=== PATIENT | female | born 1975 | race Caucasian/White ===

== ENCOUNTER 2021-01-29 11:05 | Inpatient (IN) | payer MEDICAID ==
[~2021-01-29] VITALS: Ht 157.5 cm; Wt 81.6 kg
[2021-01-29] MEDS ORDERED: WELBUTRIN (11:30)
[2021-01-29] MEDS ORDERED: ABILIFY (11:30)
[2021-01-29] MEDS ORDERED: GEODON (11:30)
[2021-01-29] MEDS ORDERED: FAMOTIDINE 20MG/2ML VIAL IV STA (11:57)
[2021-01-29] MEDS ORDERED: KETOROLAC 30MG/ML VIAL IV STA (11:57)
[2021-01-29] MEDS ORDERED: SODIUM CHLORIDE 0.9% 1,000 ML IV ONE (12:00)
[2021-01-29] MEDS ORDERED: ONDANSETRON HCL 4MG/2ML INJ IV ONE (12:15)
[2021-01-29 12:19] LABS: BASOPHILS % 0.4 % (0.0-2.0); HEMATOCRIT. 33.7 % (36.0-48.0); HEMOGLOBIN. 10.3 g/dL (12.0-16.0); LYMPHOCYTES % 13.1 % (20.0-50.0); MEAN CORPUSCULAR HEMOGLOBIN 22.1 pg (28.0-32.0); MEAN PLATELET VOLUME 7.4 fl (7.4-10.4); MONOCYTES % 5.2 % (2.0-8.0); NEUTROPHILS % 81.3 % (40.0-76.0); PLATELET 408 x1000/uL (130-400); RED BLOOD CELL COUNT 4.68 mill/uL (4.2-5.4); RED CELL DISTRIBUTION WIDTH 19.3 % (11.6-14.6)
[2021-01-29 12:25] LABS: CHLORIDE 107 mEq/L (98-107)
[2021-01-29 12:28] LABS: ETHANOL BLOOD < 10 mg/dL
[2021-01-29 12:32] LABS: HCG SCREEN NEGATIVE
[2021-01-29 14:47] LABS: CLARITY URINE CLOUDY (CLEAR); COLOR URINE DK YELLOW (YELLOW); KETONES URINE 3+ (NEGATIVE); LEUKOCYTE ESTERASE URINE 1+ (NEGATIVE); NITRITE URINE NEGATIVE (NEGATIVE); OCCULT BLOOD URINE NEGATIVE (NEGATIVE); PH URINE 8.5 (4.5-8.0); PROTEIN URINE 1+ (NEGATIVE); SPECIFIC GRAVITY URINE 1.021 (1.005-1.030)
[2021-01-29] MEDS ORDERED: MORPHINE SULFATE 4 MG/ML CPJ (NOT FOR IM USE) IV STA (14:53)
[2021-01-29] MEDS ORDERED: ONDANSETRON HCL 4MG/2ML INJ IV STA (14:53)
[2021-01-29] MEDS ORDERED: CEFTRIAXONE 1 G PREMIX 50 ML IV ONE (15:15)
[2021-01-29] MEDS ORDERED: ONDANSETRON HCL 4MG/2ML INJ IV PRN (15:30)
[2021-01-29] MEDS ORDERED: LORAZEPAM 2MG/ML CPJ IV PRN (15:30)
[2021-01-29] MEDS ORDERED: MORPHINE SULFATE 2 MG/ML CPJ (NOT FOR IM USE) IV PRN (15:30)
[2021-01-29] MEDS ORDERED: ACETAMINOPHEN 650MG SUPP PR PRN ×2 (15:30)
[2021-01-29] MEDS ORDERED: IPRATROPIUM/ALBUTEROL 0.5-3(2.5)MG/3ML NEB NEB PRN (15:30)
[2021-01-29] MEDS ORDERED: NITROGLYCERIN 0.4MG TABLET SL SL PRN (15:30)
[2021-01-29] MEDS ORDERED: ENOXAPARIN 40MG/0.4ML SYR SUBCUT SCH (15:30)
[2021-01-29 15:35] LABS: *BARBITURATES SCREEN URINE NEGATIVE (NEGATIVE); OPIATES URINE SCREEN NEGATIVE (NEGATIVE); PHENCYCLIDINE URINE SCREEN NEGATIVE (NEGATIVE)
[2021-01-29 15:37] LABS: METHADONE URINE SCREEN NEGATIVE (NEGATIVE)
[2021-01-29 15:39] LABS: *AMPHETAMINES SCREEN URINE PRESUMTIVE POSITIVE (NEGATIVE); *BENZODIAZEPINES SCREEN URINE PRESUMTIVE POSITIVE (NEGATIVE); *COCAINE SCREEN URINE PRESUMTIVE POSITIVE (NEGATIVE); CANNABINOID URINE SCREEN PRESUMTIVE POSITIVE (NEGATIVE)
[2021-01-29] MEDS ORDERED: NALOXONE HCL 0.4MG/ML VIAL IV PRN (15:45)
[2021-01-29 16:06] LABS: T4 FREE 1.21 ng/dL (0.76-1.46)
[2021-01-29 16:23] LABS: FERRITIN 8 ng/mL (10-291)
[2021-01-29 16:34] LABS: VITAMIN B12 SERUM 337 pg/mL (211-911)
[2021-01-29 16:46] LABS: FOLIC ACID (FOLATE) SERUM > 20.00 ng/mL (>5.38)
[2021-01-29] MEDS: DEXT 5%/LACTATED RINGERS 1,000 ML IV SCH (17:35)
[2021-01-29] MEDS: ENOXAPARIN 30MG/0.3ML SYR SUBCUT SCH (22:02)
[2021-01-29] MEDS ORDERED: KETOROLAC 15MG/ML VIAL IV PRN (22:30)
[2021-01-30 00:30] VITALS: BP 140/71
[2021-01-30 06:33] LABS: CHLORIDE 107 mEq/L (98-107)
[2021-01-30] MEDS: ENOXAPARIN 30MG/0.3ML SYR SUBCUT SCH (06:51)
[2021-01-30 06:52] LABS: PHOSPHORUS 2.8 mg/dL (2.5-4.9)
[2021-01-30] MEDS: DEXT 5%/LACTATED RINGERS 1,000 ML IV SCH (06:52)
[2021-01-30 06:59] LABS: BASOPHILS % 0.5 % (0.0-2.0); EOSINOPHILS % 1.1 % (0.0-5.0); HEMATOCRIT. 34.2 % (36.0-48.0); HEMOGLOBIN. 10.4 g/dL (12.0-16.0); LYMPHOCYTES % 25.7 % (20.0-50.0); MEAN CORPUSCULAR HEMOGLOBIN 22.4 pg (28.0-32.0); MEAN CORPUSCULAR VOLUME 73.5 fL (81.0-99.0); MEAN PLATELET VOLUME 8.3 fl (7.4-10.4); MONOCYTES % 8.8 % (2.0-8.0); NEUTROPHILS % 63.9 % (40.0-76.0); PLATELET 335 x1000/uL (130-400); RED BLOOD CELL COUNT 4.65 mill/uL (4.2-5.4); RED CELL DISTRIBUTION WIDTH 19.4 % (11.6-14.6)
[2021-01-30 08:00] VITALS: BP 117/50
[2021-01-30] MEDS ORDERED: PANTOPRAZOLE SODIUM 40 MG/VIAL IV SCH (09:00)
[2021-01-30] MEDS ORDERED: POTASSIUM CHLORIDE 20MEQ TABLET SR PO NR (11:15)
== END 2021-01-30 12:18 | disposition left against medical advice (07) | DRG 254 ==
LOC: ER 11:05 → MICUSO 21:16 → 6EST 23:02
PROVIDERS: ADMIT Internal Medicine; ATTEND Internal Medicine
DX: K43.9 Ventral hernia without obstruction or gangrene (principal); D63.8 Anemia in other chronic diseases classified elsewhere; E66.9 Obesity, unspecified; E87.6 Hypokalemia; F15.90 Other stimulant use, unspecified, uncomplicated; Z53.21 Procedure and treatment not carried out due to patient leaving prior to being seen by health care provider; F17.210 Nicotine dependence, cigarettes, uncomplicated; Z68.32 Body mass index [BMI] 32.0-32.9, adult; Z79.899 Other long term (current) drug therapy
CPT/HCPCS: 36415; 71045; 74176; 80053; 80305; 80320; 81003; 82607; 82728; 82746; 83540; 83550; 83735; 84100; 84439; 84443; 84703; 85025; 93005; 99285; C9113; J0696; J1650; J1885; J2270; J2405; J3490; J7030; G0480

== ENCOUNTER 2021-07-12 00:35 | Emergency (ER) | payer MEDICAID ==
[~2021-07-12] VITALS: Ht 165.1 cm; Wt 77.0 kg
[~2021-07-12 00:35] MED LIST: ABILIFY; GEODON; WELBUTRIN
[2021-07-12] MEDS ORDERED: SODIUM CHLORIDE 0.9% 1,000 ML IV ONE (01:45)
[2021-07-12 02:31] LABS: BASOPHILS % 0.3 % (0.0-2.0); EOSINOPHILS % 0.1 % (0.0-5.0); HEMATOCRIT. 28.5 % (36.0-48.0); HEMOGLOBIN. 9.2 g/dL (12.0-16.0); LYMPHOCYTES % 12.9 % (20.0-50.0); MEAN CORPUSCULAR HEMOGLOBIN 22.2 pg (28.0-32.0); MEAN CORPUSCULAR VOLUME 68.9 fL (81.0-99.0); MEAN PLATELET VOLUME 7.5 fl (7.4-10.4); MONOCYTES % 6.6 % (2.0-8.0); NEUTROPHILS % 80.1 % (40.0-76.0); PLATELET 654 x1000/uL (130-400); RED BLOOD CELL COUNT 4.14 mill/uL (4.2-5.4); RED CELL DISTRIBUTION WIDTH 16.8 % (11.6-14.6)
[2021-07-12 02:31] LABS: CLARITY URINE TURBID (CLEAR); COLOR URINE DARK YELLOW (YELLOW); KETONES URINE TRACE (NEGATIVE); LEUKOCYTE ESTERASE URINE 3+ (NEGATIVE); NITRITE URINE POSITIVE (NEGATIVE); OCCULT BLOOD URINE 2+ (NEGATIVE); PROTEIN URINE 2+ (NEGATIVE); SPECIFIC GRAVITY URINE 1.015 (1.005-1.030)
[2021-07-12 02:37] LABS: PLATELET ESTIMATE SLIGHTLY INCREASED
[2021-07-12 02:40] LABS: CHLORIDE 100 mEq/L (98-107)
[2021-07-12 02:45] LABS: ETHANOL BLOOD < 10 mg/dL
[2021-07-12 02:50] LABS: *BARBITURATES SCREEN URINE NEGATIVE (NEGATIVE); *BENZODIAZEPINES SCREEN URINE NEGATIVE (NEGATIVE); METHADONE URINE SCREEN NEGATIVE (NEGATIVE)
[2021-07-12 02:52] LABS: OPIATES URINE SCREEN NEGATIVE (NEGATIVE); PHENCYCLIDINE URINE SCREEN NEGATIVE (NEGATIVE)
[2021-07-12 02:53] LABS: *AMPHETAMINES SCREEN URINE PRESUMTIVE POSITIVE (NEGATIVE); *COCAINE SCREEN URINE PRESUMTIVE POSITIVE (NEGATIVE); CANNABINOID URINE SCREEN PRESUMTIVE POSITIVE (NEGATIVE)
[2021-07-12] MEDS ORDERED: CEFTRIAXONE 1 G PREMIX 50 ML IV ONE (03:00)
[2021-07-12] MEDS ORDERED: PREDNISONE 20MG TABLET PO ONE (03:00)
[2021-07-12] MEDS ORDERED: CEPH500T MT (05:07)
[2021-07-12] MEDS ORDERED: P20 MT (05:07)
[2021-07-12 06:12] VITALS: BP 115/66
== END 2021-07-12 06:14 | disposition home or self-care (01) ==
LOC: ER 00:35
DX: T78.40XA Allergy, unspecified, initial encounter (principal); F15.10 Other stimulant abuse, uncomplicated; N39.0 Urinary tract infection, site not specified; D64.9 Anemia, unspecified; F17.210 Nicotine dependence, cigarettes, uncomplicated; F14.10 Cocaine abuse, uncomplicated; X58.XXXA Exposure to other specified factors, initial encounter
CPT/HCPCS: 36415; 80053; 80305; 80320; 81003; 83605; 85025; 85651; 87077; 87086; 87186; 93005; 96374; 99284; J0696; J7030; J7512; Z7610; G0480

== ENCOUNTER 2023-05-09 02:40 | Emergency (ER) | payer MEDICAID ==
[~2023-05-09] VITALS: Ht 160 cm; Wt 59.0 kg
[~2023-05-09 02:40] MED LIST changes: +CEPH500T MT; +P20 MT
[2023-05-09 02:49] VITALS: O2SAT 100
[2023-05-09 03:24] LABS: BASOPHILS % 1.3 % (0.0-2.0); DIFFERENTIAL COMMENT 0; EOSINOPHILS % 1.4 % (0.0-5.0); HEMATOCRIT. 29.5 % (36.0-48.0); HEMOGLOBIN. 9.2 g/dL (12.0-16.0); LYMPHOCYTES % 30.5 % (20.0-50.0); MEAN CORPUSCULAR HEMOGLOBIN 22.5 pg (28.0-32.0); MEAN CORPUSCULAR HGB CONC 31.1 g/dL (31.0-37.0); MEAN CORPUSCULAR VOLUME 72.6 fL (81.0-99.0); MEAN PLATELET VOLUME 7.1 fl (7.4-10.4); NEUTROPHILS % 55.8 % (40.0-76.0); PLATELET 445 x1000/uL (130-400); RED BLOOD CELL COUNT 4.06 mill/uL (4.2-5.4); RED CELL DISTRIBUTION WIDTH 20.5 % (11.6-14.6); WHITE BLOOD COUNT 4.8 x1000/uL (4.5-11.0)
[2023-05-09 03:41] LABS: ALANINE AMINOTRANSFERASE 25 IU/L (10-49); ASPARTATE AMINOTRANSFERASE 28 IU/L (<34); BILIRUBIN TOTAL 0.6 mg/dL (0.1-1.0); CALCIUM 8.8 mg/dL (8.7-10.4); CARBON DIOXIDE 27 mEq/L (21-32); CHLORIDE 106 mEq/L (98-107); CREATININE 0.8 mg/dL (0.6-1.0); GLUCOSE 100 mg/dL (70-105); POTASSIUM 3.3 mEq/L (3.5-5.1); PROTEIN TOTAL 6.4 g/dL (6.0-8.3); SODIUM 142 mEq/L (136-145); UREA NITROGEN BLOOD 14 mg/dL (9-23)
[2023-05-09] MEDS ORDERED: ONDANSETRON 4MG ODT PO ONE (05:45)
[2023-05-09] MEDS ORDERED: KETOROLAC 15MG/ML VIAL IM ONE (05:45)
[2023-05-09 06:29] LABS: CLARITY URINE CLOUDY (CLEAR); COLOR URINE YELLOW (YELLOW); SPECIFIC GRAVITY URINE 1.025 (1.005-1.030)
[2023-05-09 06:30] LABS: GLUCOSE URINE NEGATIVE (NEGATIVE); KETONES URINE TRACE (NEGATIVE); NITRITE URINE NEGATIVE (NEGATIVE); OCCULT BLOOD URINE 3+ (NEGATIVE); PROTEIN URINE TRACE (NEGATIVE)
[2023-05-09 06:31] LABS: LEUKOCYTE ESTERASE URINE NEGATIVE (NEGATIVE)
[2023-05-09 08:03] LABS: SQUAMOUS EPITHELIAL CELL URINE 2+ /lpf (RARE/1+)
[2023-05-09 08:05] LABS: RBC URINE 0-2 /hpf (0-2)
[2023-05-09 08:07] LABS: BACTERIA URINE NONE SEEN
[2023-05-09] MEDS ORDERED: POLY17PO3 MT (08:25)
[2023-05-09 08:43] VITALS: BP 134/56; PULSE 85; RESP 18; TEMP 98.3
[2023-05-09 08:52] LABS: UCG SCREEN NEGATIVE
== END 2023-05-09 08:44 | disposition home or self-care (01) ==
LOC: ER 02:40
DX: R10.9 Unspecified abdominal pain (principal)
CPT/HCPCS: 80053; 81003; 81025; 83690; 85025; 36415; 74176; 96372; 99285; Q0162; J1885; Z7610

== ENCOUNTER 2024-05-17 01:23 | Emergency (ER) | payer MEDICAID ==
[~2024-05-17] VITALS: Ht 165.1 cm; Wt 75.0 kg
[~2024-05-17 01:23] MED LIST changes: +POLY17PO3 MT
[2024-05-17 01:26] VITALS: TEMP 97.2; O2SAT 98
[2024-05-17] MEDS: MORPHINE SULFATE 4 MG/ML INJ (FOR IV/IM USE) IM ONE (01:45)
[2024-05-17] MEDS: LIDOCAINE HCL/EPINEPHRINE 1%-EPI 1:100,000 20ML VIAL INFIL ONE (01:45)
[2024-05-17] MEDS: ONDANSETRON 4MG ODT PO ONE (01:45)
[2024-05-17] MEDS: TETANUS, DIPHTHERIA, PERTUSSIS VAC/PF 0.5ML (>10YR OLD) IM ONE (01:45)
[2024-05-17] MEDS: BACITRACIN ZINC OINT UDPKT TOP ONE (01:45)
[2024-05-17] MEDS ORDERED: IBUP-2029 MT (02:45)
[2024-05-17] MEDS ORDERED: CEPH500C2 MT (02:45)
[2024-05-17 03:17] VITALS: BP 148/76; PULSE 88; RESP 18; O2SAT 100
== END 2024-05-17 03:31 | disposition home or self-care (01) ==
LOC: ER 01:29
DX: S81.812A Laceration without foreign body, left lower leg, initial encounter (principal); F10.20 Alcohol dependence, uncomplicated; F15.90 Other stimulant use, unspecified, uncomplicated; Z79.899 Other long term (current) drug therapy; W19.XXXA Unspecified fall, initial encounter; Y93.89 Activity, other specified; Y92.89 Other specified places as the place of occurrence of the external cause; Y99.8 Other external cause status; Y90.9 Presence of alcohol in blood, level not specified
CPT/HCPCS: 73590; 90715; 12002; 90471; 96372; 99284; Q0162; J3490; J2270; Z7610 ×2